=== PATIENT | female | born 1970 | race Caucasian/White ===

== ENCOUNTER 2020-07-31 20:10 | Emergency (ER) | payer MEDICAID, SELFPAY ==
[2020-07-31 20:18] VITALS: BP 119/79; PULSE 80; RESP 18; TEMP 36.2; O2SAT 100
--- NOTE | 2020-07-31 20:24 | ED.GENADULT ---
HPI - General Adult General Chief complaint: Extremity Injury, Upper <Luis A Hernandez PA-C - Last Filed: 08/08/20 21:35> Stated complaint: right arm pain, possible injury from tuesday <Luis A Hernandez PA-C - Last Filed: 08/08/20 21:35> Time Seen by Provider: 07/31/20 20:19 <Luis A Hernandez PA-C - Last Filed: 08/08/20 21:35> Related Data Allergies/adverse reactions: Allergies Allergy/AdvReac Type Severity Reaction Status Date / Time sulfisoxazole AdvReac Unknown Verified 07/31/20 20:22 [From Gantrisin] <Luis A Hernandez PA-C - Last Filed: 08/08/20 21:35> [facility] Past Medical History Medical History: Medical History (Updated 08/01/20 @ 00:00 by Raphael Agosto) Diabetes mellitus <Luis A Hernandez PA-C - Last Filed: 08/08/20 21:35> Social History Social History: Social History (Updated 07/31/20 @ 20:24 by Luis A Hernandez PA-C) Smoking status: Current every day smoker <Luis A Hernandez PA-C - Last Filed: 08/08/20 21:35> Exam Narrative: Exam Narrative: GENERAL: Well-appearing, well-nourished, and in no acute distress. HEAD: Normocephalic, atraumatic. EYES: PERRLA and EOMI. ENT: Nares clear, no rhinorrhea or epistaxis. Mucous membranes moist. Oropharynx without tonsillar hypertrophy exudate or other lesions. NECK: Supple. No adenopathy or masses. EXTREMITIES: Normal range of motion. No edema. Tenderness of the medial aspect of the right elbow at the condyle remainder of extremity nontender no deformities SKIN: Warm, dry, no rash. NEURO: No focal deficits. Alert and oriented x3. Neurovascularly intact. Capillary refill less than 3 seconds PSYCH: Normal mood and affect. <Luis A Hernandez PA-C - Last Filed: 08/08/20 21:35> Course Course Emergency Course: Patient in the room in no distress aware of case findings treatment plan and diagnosis agreeing to follow-up with provided specialty services <Luis A Hernandez PA-C - Last Filed: 09/11/20 21:35> Vital Signs Vital signs: Vital Signs Temperature 97.2 F L 07/31/20 20:18 Pulse Rate 80 07/31/20 20:18 Respiratory Rate 18 07/31/20 20:18 Blood Pressure 119/79 07/31/20 20:18 Pulse Oximetry 100 07/31/20 20:18 Temperature 97.2 F L 07/31/20 20:18 Pulse Rate 80 07/31/20 20:18 Respiratory Rate 18 07/31/20 20:18 Blood Pressure 119/79 07/31/20 20:18 Pulse Oximetry 100 07/31/20 20:18 <Luis A Hernandez PA-C - Last Filed: 08/08/20 21:35> Vital Signs Temperature 97.2 F L 07/31/20 20:18 Pulse Rate 80 07/31/20 20:18 Respiratory Rate 18 07/31/20 20:18 Blood Pressure 119/79 07/31/20 20:18 Pulse Oximetry 100 07/31/20 20:18 Temperature 97.2 F L 07/31/20 20:18 Pulse Rate 80 07/31/20 20:18 Respiratory Rate 18 07/31/20 20:18 Blood Pressure 119/79 07/31/20 20:18 Pulse Oximetry 100 07/31/20 20:18 <Keren Salomon MD - Last Filed: 08/15/20 18:59> Medical Decision Making MDM Narrative Medical decision making narrative: Patients injury or pain is consistent with musculoskeletal etiology. No signs of neurological or vascular compromise on exam. Compartments and tisues are soft without signs of compartment syndrome. Pain is felt appropriate for further evaluation on an outpatient basis. <Luis A Hernandez PA-C - Last Filed: 08/08/20 21:35> Vital Signs Vital Signs: Vital Signs Temperature 97.2 F L 07/31/20 20:18 Pulse Rate 80 07/31/20 20:18 Respiratory Rate 18 07/31/20 20:18 Blood Pressure 119/79 07/31/20 20:18 Pulse Oximetry 100 07/31/20 20:18 Temperature 97.2 F L 07/31/20 20:18 Pulse Rate 80 07/31/20 20:18 Respiratory Rate 18 07/31/20 20:18 Blood Pressure 119/79 07/31/20 20:18 Pulse Oximetry 100 07/31/20 20:18 <Luis A Hernandez PA-C - Last Filed: 08/08/20 21:35> Vital Signs Temperature 97.2 F L 07/31/20 20:18 Pulse Rate 80 07/31/20 20:18 Respiratory Rate 18 07/31
[2020-07-31] MEDS: IBUPROFEN 600 MG TABLET PO (20:28)
== END 2020-07-31 20:35 | disposition home or self-care (01) ==
PROVIDERS: Emergency Provider General Practice; PCP Internal Medicine
DX: M77.9 Enthesopathy, unspecified (principal); E11.9 Type 2 diabetes mellitus without complications; F17.200 Nicotine dependence, unspecified, uncomplicated
CPT/HCPCS: 99283; A9270

== ENCOUNTER 2021-03-26 00:16 | Inpatient (IN) | payer OTHER, SELFPAY ==
[2021-03-26] VITALS (25 sets, daily range): BP systolic 93–142; BP diastolic 52–76; PULSE 59–87; RESP 11–20; TEMP 35.8–36.7; O2SAT 93–100; BMI 25.4
--- NOTE | ~2021-03-26 | XR_ITS ---
EXAMINATION: XR chest 2V DATE: 03/26/2021 00:59 INDICATION: Midline chest pain. TECHNIQUE: Frontal and lateral views of the chest were obtained. COMPARISON: None. FINDINGS: The chest demonstrates clear lungs without pneumonia, pleural effusion, or pneumothorax. Th e heart size is normal. IMPRESSION: 1. No acute cardiopulmonary disease. Reviewed, dictated and finalized at location A.
--- NOTE | 2021-03-26 00:27 | ECG_ITS ---
Measurements Intervals [place] Rate: 69 P: 48 [place]: 184 QRS: 34 QRSD: 85 T: 29 QT: 353 QTc: 378 Interpretive Statements SINUS RHYTHM BASELINE ARTIFACT- I, II, III, AVR, AVF, V1, V3-V6 NORMAL ECG Electronically Signed On 03-26-2021 7:14:17 CDT by Scott Chambers D.O.
[2021-03-26 00:43] LABS: Basophils Percent Auto 0.3 % (0.2-1.2); Eosinophils Absolute Auto 0.2 K/mm3 (0-0.3); Eosinophils Percent Auto 1.6 % (0-4.4); Hematocrit 46.1 % (37.0-47.0); Hemoglobin 15.1 g/dL (12.0-15.0); Immature Granulocyte Absolute 0.03 K/mm3 (0.00-0.031); Immature Granulocyte Percent A 0.3 % (0-0.5); Lymphocytes Absolute Auto 3.58 K/mm3 (0.9-3.2); Lymphocytes Percent Auto 33.5 % (18.3-44.2); Mean Corpuscular HGB Conc 32.8 g/dl (32-36); Mean Corpuscular Hemoglobin 31.1 pg (26-34); Mean Corpuscular Volume 95.1 fl (80-100); Mean Platelet Volume 9.7 fl (7.4-10.4); Monocytes Absolute Auto 0.7 K/mm3 (0.1-0.6); Monocytes Percent Auto 6.8 % (2.6-8.5); Neutrophils Absolute Auto 6.1 K/mm3 (1.3-6.7); Neutrophils Percent Auto 57.5 % (45.5-73.1); Platelet Count Result 267 k/mm3 (150-375); Red Blood Count 4.85 M/mm3 (4.2-5.4); Red Cell Distribution Width 13.2 % (11.5-14.5); White Blood Count 10.7 K/mm3 (4.5-10.0)
[2021-03-26 00:50] LABS: Anion Gap 7 mmol/L (8-16); Blood Urea Nitrogen 15 mg/dL (7-17); Calcium 9.2 mg/dL (8.4-10.2); Carbon Dioxide 27 mmol/L (22-30); Chloride 104 mmol/L (98-107); Estimated CRCL calculation 87 ml/min; Estimated Glomerular Filt Rate > 60; Glucose 274 mg/dL (65-105); INR 0.9; Potassium 4.1 mmol/L (3.4-5.0); Prothrombin Time 12.2 Seconds (11.1-14.7); Sodium 138 mmol/L (137-145)
[2021-03-26 00:52] LABS: Partial Thromboplastin Time 26.3 SECONDS (22.3-36.8)
[2021-03-26] MEDS: ASPIRIN 81 MG CHEWABLE TABLET 324 MG PO (01:13)
--- NOTE | 2021-03-26 01:21 | ED.CHESTPAIN ---
HPI - Chest Pain General Chief Complaint: Chest Pain Stated Complaint: Chest pain Time Seen by Provider: 03/26/21 01:21 Source: patient Mode of arrival: ambulatory Limitations: no limitations History of Present Illness HPI narrative: Patient is a 50-year old female complaining of chest pain, midsternal, 7 out of 10, tightness, radiating to her left upper extremity that started prior to arrival. Patient denies any shortness of breath, abdominal pain, nausea, vomiting, diaphoresis, fever or chills. Related Data Allergies Allergy/AdvReac Type Severity Reaction Status Date / Time sulfisoxazole AdvReac Unknown Verified 03/26/21 00:17 [From Gantrisin] Review of Systems Review of Systems: All systems reviewed & are unremarkable except as noted in HPI and below Constitutional: Constitutional: Denies body ache(s), Denies chills, Denies excessive sweating, Denies fatigue, Denies fever(s), Denies headache(s), Denies lethargy, Denies malaise, Denies weakness and Denies weight loss Eyes: Eyes: Denies blurry vision, Denies change in vision and Denies loss of vision ENT: Denies dizziness, Denies ear discharge, Denies headache(s), Denies lip swelling, Denies epistaxis, Denies nasal congestion, Denies neck pain, Denies throat swelling and Denies tongue swelling Cardiovascular: Cardiovascular: Denies diaphoresis, Denies rapid heart rate, Denies edema, Denies irregular heart rhythm, Denies lightheadedness, Denies palpitations, Denies dyspnea and Denies dyspnea on exertion Respiratory: Respiratory: Denies chest congestion, Denies cough, Denies hemoptysis, Denies dyspnea and Denies dyspnea on exertion Gastrointestinal: Gastrointestinal: Denies abdominal pain, Denies melena, Denies hematochezia, Denies diarrhea, Denies nausea, Denies vomiting and Denies hematemesis Musculoskeletal: Musculoskeletal: Denies abnormal gait, Denies deformity, Denies joint swelling, Denies limited range of motion, Denies neck pain and Denies numbness Neurologic: Denies Abnormal speech present, Denies abnormal gait, Denies confusion, Denies dizziness, Denies headache(s), Denies focal weakness, Denies loss of vision, Denies numbness, Denies Other visual disturbances, Denies Sensory deficit (Neuro) and Denies weakness Psychiatric: Psychiatric: Denies confusion, Denies depression, Denies auditory hallucinations, Denies homicidal ideation and Denies suicidal ideation Endocrine: Endocrine: Denies cold intolerance, Denies excessive sweating, Denies fatigue, Denies heat intolerance and Denies palpitations Hematologic/Lymphatic: Hematologic/Lymphatic: Denies easy bleeding and Denies easy bruising Allergic/Immunologic: Allergic/Immunologic: Denies lip swelling, Denies throat swelling and Denies tongue swelling PMFSH Past Medical History Medical History (Updated 03/26/21 @ 02:31 by Anthony Rivas MD) Diabetes mellitus Social History Social History (Updated 07/31/20 @ 20:24 by Luis A Hernandez PA-C) Smoking status: Current every day smoker Comments Past medical history: Diabetes Family history: Positive for coronary artery disease Social history: Non-smoker no EtOH or drug use Exam Const: General: cooperative, healthy appearing, comfortable, no acute distress, well developed, alert and awake; No confusion Orientation/consciousness: oriented to person, oriented to place, oriented to time, patient oriented x3 and No confusion Limitations: no limitations HENMT: Head: normal to inspection, normocephalic and atraumatic Ears: hearing grossly normal bilaterally, TM normal on the right and TM normal on the left General nose exam: Normal external nose present, Normal nares present and No nasal discharge present Face and sinus: normal facial exam Mouth: Yes Normal oral and palatal mucosa present, Yes lip normal, Yes tongue normal and Yes oropharynx normal Throat: posterior oropharynx normal, tonsils normal and uvula midline Eyes: General: appearance normal, both eyes
--- NOTE | 2021-03-26 02:02 | PC.NURSE ---
RN in to administered enoxaparin. pt. refusing the shot. pt. also asking when she can go home. ERP notified and informed RN he will talk to the pt.
[2021-03-26] MEDS: ENOXAPARIN 80 MG/0.8 ML SYRINGE SUB-Q (02:09)
--- NOTE | 2021-03-26 03:16 | PC.NURSE ---
Pt ambulatory to restroom with steady even unassisted gait. c/o pain to upper medial chest. intermittantly appears asleep and/or talking on the phone. no s/s of distress, pain, respiratory difficulty. Pt requests dinner tray and beverage - pt educated that she is currently NPO per admission orders. will continue to monitor/
--- NOTE | 2021-03-26 04:05 | PC.NURSE ---
This patient, Juany Tripathi, was admitted to IMU Room 211-01. Patient/family oriented to hospital policies and general routines including ID bracelet, bed and alarms, visiting hours, pain management, procedures, bathroom and other care routines, personal items, smoking policy, room service/diet, and visiting hours. Information on how to activate the Rapid Response Team has been discussed. Patient/Family are encouraged to report perceived risks to care and to ask questions if they do not understand what they are told or what they should do.
[2021-03-26 04:26] LABS: Troponin I 0.072 ng/mL (0.000-0.034)
[2021-03-26] MEDS: LACTATED RINGERS 1,000 ML 125 ML IV CONT (05:48)
[2021-03-26 06:47] LABS: Troponin I 0.081 ng/mL (0.000-0.034)
--- NOTE | 2021-03-26 09:16 | ECHO_ITS ---
Patient Info Name: Juany Tripathi Age: 50 years : 1970 Gender: Female Ht: 65 in Wt: 153 lbs BSA: 1.80 m2 HR: 60 bpm BP: 104 / 57 mmHg Technical Quality: Good Exam Date: 03/26/2021 9:54 AM Exam Location: [facility] Patient Status: Inpatient Admit Date: 03/26/2021 Staff Ordering Physician: Jonathan Brunson MD (la/brenda) [employer] (Ex ): Noemí Feliciano RDCS Attending Provider: Luly Clark MD Exam Type: CA echo doppler color flow Study Info Indications R07.9 - Chest pain, unspecified Complete two-dimensional, color flow and Doppler transthoracic echocardiogram is performed. Summary 1. Complete two-dimensional, color flow and Doppler transthoracic echocardiogram is performed. 2. Left ventricular chamber dimension is normal. 3. Left ventricular systolic function is normal, estimated at 65-70%. 4. The aortic valve is trileaflet. 5. There is no aortic valve stenosis. 6. The mitral valve has normal leaflets. 7. There is trace mitral valve regurgitation. 8. There is trace tricuspid valve regurgitation. 9. No pulmonary hypertension, estimated pulmonary arterial systolic pressure is 29 mmHg. 10. There is no pericardial effusion. 11. Normal inferior vena cava with >50% collapse upon inspiration. Left Ventricle Left ventricular chamber dimension is normal. Left ventricular systolic function is normal, estimated at 65-70%. There is no increased left ventricular wall thickness. Left ventricular septal wall motion is normal. The left ventricular diastolic function is normal. Global longitudinal strain is normal at -19 %. Right Ventricle Right ventricular chamber dimension is normal. Right ventricular systolic function is normal. Left Atria Left atrial chamber dimension is normal. Right Atria Right atrial chamber dimension is normal. Aortic Valve The aortic valve is trileaflet. There is no aortic valve sclerosis. There is no aortic valve stenosis. There is no aortic valve regurgitation. Pulmonic Valve The pulmonic valve is normal. There is no pulmonic valve stenosis. There is no pulmonic regurgitation. Mitral Valve The mitral valve has normal leaflets. There is no mitral valve stenosis. There is trace mitral valve regurgitation. Tricuspid Valve The tricuspid valve leaflets are normal. There is no significant tricuspid valve stenosis. There is trace tricuspid valve regurgitation. No pulmonary hypertension, estimated pulmonary arterial systolic pressure is 29 mmHg. Pericardium/Pleural The pericardium appears normal. There is no pericardial effusion. Inferior Vena Cava Normal inferior vena cava with >50% collapse upon inspiration. Aorta The aortic root size at the sinus of Valsalva is normal. The prox ascending aorta size is normal. Left Ventricular Outflow Tract Name Value Normal LVOT 2D LVOT Diameter 2.0 cm LVOT Doppler LVOT Peak Gradient 3 mmHg LVOT Mean Gradient 2 mmHg LVOT VTI 19 cm LVOT VTI/AV VTI Ratio 1.0
--- NOTE | 2021-03-26 09:33 | PM.CNCAR ---
Assessment and Plan Assessment and plan (1) Non-ST elevation NV (NSTEMI): Code(s): I21.4 - Non-ST elevation (NSTEMI) myocardial infarction Status: Acute Assessment and Plan: 50 y/o with no prior cardiac history however risk factors of DM for >20 years and active tobacco abuse who presented with chest pain She ruled in with Troponin that is mildly elevated 0.08. EKG with ischemic changes in inferior leads. She is pain free currently. Received 1 dose of Lovenox around 3 am. Will follow troponin to peak. Check Lipid panel Check 2D echo Will plan C later today. Keep NPO Will start ASA 81 mg daily (received 325 mg last night). Will also start Crestor 10 mg daily. Will hold off starting second antiplatelet. Also no BB with no BP room Smoking cessation counseling (2) Diabetes: Code(s): E11.9 - Type 2 diabetes mellitus without complications Status: Acute Assessment and Plan: Management per primary team (3) Tobacco abuse: Code(s): Z72.0 - Tobacco use Status: Acute History of Present Illness History of Present Illness Consult date/time: 03/26/21 09:33 50 y/o with no known cardiac history however cardiovascular risk factors of DM for 20+ years and active tobacco abuse who presented with chest pain Pain started around midnight and woke her up from sleep, felt like heaviness as if someone sitting on her chest with squeezing in the left arm. Pain was 10/10 , associated with nausea but no dyspnea or diaphoresis. Her daughter brought her to ER. Her chest pain resolved while in ER. She received ASA. Her Trop was mildly elevated at 0.06---0.07--0.08 She feels better this morning with no recurrence of chest pain.She admits to being under a lot of stress. EKG shows normal sinus rhythm with T wave inversion in inferior leads Creatinine normal. Lipid panel was not checked. Father had heart disease in his late 60s, younger sister has stents and on HD Reason For Visit: NSTEMI Review of Systems Review of Systems: All systems reviewed & are unremarkable except as noted in HPI and below Constitutional: Constitutional: Denies fatigue and Denies headache(s) Eyes: Eyes: Denies blurry vision ENT: Reports Normal hearing present and Denies headache(s) Cardiovascular: Cardiovascular: Denies chest pain, Denies diaphoresis, Denies pedal edema, Denies leg edema, Denies lightheadedness, Denies palpitations and Denies dyspnea Respiratory: Respiratory: Denies cough and Denies dyspnea Gastrointestinal: Gastrointestinal: Denies abdominal pain Musculoskeletal: Musculoskeletal: Denies back pain Neurologic: Reports Normal hearing present and Denies headache(s) Psychiatric: Psychiatric: Denies anxiety Endocrine: Endocrine: Denies fatigue and Denies palpitations PMFSH Past Medical History Medical History (Updated 03/26/21 @ 09:41 by Jonathan Brunson MD) Diabetes mellitus Family History Family History (Updated 03/26/21 @ 04:44 by Shen Gonzales RN) Father Acute myocardial infarction Diabetes mellitus Mother Acute myocardial infarction Diabetes mellitus Sibling Diabetes mellitus Social History Social History (Updated 07/31/20 @ 20:24 by Luis A Hernandez PA-C) Smoking packs per day: 1 Smoking cigarettes per day: 20.0 Years smoked: 30 Smoking pack-years: 30.00 Smoking status: Current every day smoker Tobacco type: cigarettes Alcohol intake: current Drinks per week: 1 Spiritual care concerns: No Meds Home Medications and Allergies Home Medications Medication Instructions Recorded Confirmed Type bupropion HCl 150 mg PO DAILY 03/26/21 03/26/21 History calcium carbonate-vitamin D3 1 tablet PO DAILY 03/26/21 03/26/21 History empagliflozin [Jardiance] 10 mg PO DAILY 03/26/21 03/26/21 History estradiol-norethindrone acet 1 tablet PO DAILY 03/26/21 03/26/21 History fluoxetine 20 mg PO DAILY 03/26/21 03/26/21 History glimepiride 4 mg PO D
[2021-03-26 10:46] LABS: Cholesterol 171 mg/dL (0-200); HDL Direct 31 mg/dL; Triglycerides 127 mg/dL (<150)
[2021-03-26 10:57] LABS: LDL Cholesterol Direct 109 mg/dL
[2021-03-26 11:00] LABS: Troponin I 0.067 ng/mL (0.000-0.034)
[2021-03-26 11:16] LABS: Hemoglobin A1C 12.6 % (<5.7)
--- NOTE | 2021-03-26 13:02 | PM.IMHP ---
H&P: HPI History of Present Illness Date/Time: 03/26/21 13:02 Patient is a 50-year-old female with no significant past medical history cardiac disease other than diabetes however family history significant for coronary artery disease her father had AL at age 50 and her sister in her 20s, presented with complaint of chest pain upon arrival, patient states the pain woke her up from sleep and felt like somebody was sitting on her chest, emergency depart patient was evaluated her tropes are elevated 0.06, 0.072, 0.081 and 0.067, patient seen cardiology suspect non STEMI and has ordered cardiac echo and will take the patient for a catheterization later this afternoon, patient with uncontrolled diabetes with hemoglobin A1c of 12.6 will have perinatal educator evaluate the patient meanwhile will continue home regimen and further recommendation to follow Chief Complaint: Chest pain Review of Systems Review of Systems: All systems reviewed & are unremarkable except as noted in HPI and below PMFSH Past Medical History Medical History (Updated 03/26/21 @ 13:19 by Luly Clark MD) Diabetes mellitus Family History Family History (Updated 03/26/21 @ 04:44 by Shen Gonzales RN) Father Acute myocardial infarction Diabetes mellitus Mother Acute myocardial infarction Diabetes mellitus Sibling Diabetes mellitus Social History Social History (Updated 07/31/20 @ 20:24 by Luis A Hernandez PA-C) Smoking packs per day: 1 Smoking cigarettes per day: 20.0 Years smoked: 30 Smoking pack-years: 30.00 Smoking status: Current every day smoker Tobacco type: cigarettes Alcohol intake: current Drinks per week: 1 Spiritual care concerns: No Meds Home Medications and Allergies Home Medications Medication Instructions Recorded Confirmed Type bupropion HCl 150 mg PO DAILY 03/26/21 03/26/21 History calcium carbonate-vitamin D3 1 tablet PO DAILY 03/26/21 03/26/21 History empagliflozin [Jardiance] 10 mg PO DAILY 03/26/21 03/26/21 History estradiol-norethindrone acet 1 tablet PO DAILY 03/26/21 03/26/21 History fluoxetine 20 mg PO DAILY 03/26/21 03/26/21 History glimepiride 4 mg PO DAILY 03/26/21 03/26/21 History Allergies Allergy/AdvReac Type Severity Reaction Status Date / Time sulfisoxazole AdvReac Unknown Verified 03/26/21 00:17 [From Gantrisin] Vital Signs Vital Signs - 24 hr 03/26/21 00:22 03/26/21 00:30 03/26/21 01:58 Temperature 98.1 F Pulse Rate 70 74 Respiratory Rate 14 Blood Pressure 125/70 Pulse Oximetry 100 98 03/26/21 02:02 03/26/21 03:58 03/26/21 04:00 Temperature 97.2 F L Pulse Rate 70 65 65 Respiratory Rate 16 20 20 Blood Pressure 142/76 H 114/73 Pulse Oximetry 98 98 99 03/26/21 06:00 03/26/21 06:31 03/26/21 08:00 Temperature 97.9 F Pulse Rate 87 72 64 Respiratory Rate 18 Blood Pressure 104/57 L Pulse Oximetry 93 98 03/26/21 10:00 03/26/21 12:00 Temperature 97.3 F L Pulse Rate 65 63 Respiratory Rate 14 Blood Pressure 100/56 L Pulse Oximetry 100 Exam Narrative: Exam Narrative: Patient is comfortable, NAD HEENT: eyes are clear and none icteric LUNGS:CTA HEART: RR S1S2 ABD: BS+, Soft and nontender Lower extremities: no edema SKIN: nonjaundiced Neuro: grossly intact. H&P: Results Labs Labs: Short CBC 03/26/21 Range/Units 00:33 WBC 10.7 H (4.5-10.0) K/mm3 Hgb 15.1 H (12.0-15.0) g/dL Hct 46.1 (37.0-47.0) % Plt Count 267 (150-375) k/mm3 BMP 03/26/21 00:33 Sodium 138 Potassium 4.1 Chloride 104 Carbon Dioxide 27 BUN 15 Creatinine 0.70 Glucose 274 H Calcium 9.2 Cardiac Enzymes 03/26/21 03/26/21 03/26/21 Range/Units 00:33 03:40 06:05 Troponin I 0.060 H* 0.072 H* 0.081 H* (0.000-0.034) ng/mL 03/26/21 Range/Units 09:48 Troponin I 0.067 H* (0.000-0.034) ng/mL Assessment and Plan Assessment and plan (1) Non-ST elevation AL (NSTEMI): Code(s)
--- NOTE | 2021-03-26 14:04 | WPDMODSED ---
Moderate Sedation Note-Pt Data Patient Data Allergies Allergy/AdvReac Type Severity Reaction Status Date / Time sulfisoxazole AdvReac Unknown Verified 03/26/21 00:17 [From [facility]] Home Medications Medication Instructions Recorded Confirmed Type bupropion HCl 150 mg PO DAILY 03/26/21 03/26/21 History calcium carbonate-vitamin D3 1 tablet PO DAILY 03/26/21 03/26/21 History empagliflozin [Jardiance] 10 mg PO DAILY 03/26/21 03/26/21 History estradiol-norethindrone acet 1 tablet PO DAILY 03/26/21 03/26/21 History fluoxetine 20 mg PO DAILY 03/26/21 03/26/21 History glimepiride 4 mg PO DAILY 03/26/21 03/26/21 History Current Medications: Active Medications Aspirin (Aspirin 81 Mg Chewable Tablet) 81 mg PO DAILY@0800 ON LICENSE OF [facility] Bupropion HCl (Bupropion Hcl Sr (12hr) 150 Mg Tab) 150 mg PO DAILY ON LICENSE OF [facility] Calcium Carbonate (Calcium/Vitamin D 500 Mg Tablet) 500 mg PO DAILY ON LICENSE OF [facility] Dextrose (Dextrose 50% 25 Gm/50 Ml Syringe) 12.5 gm IV PUSH PRN PRN; Protocol PRN Reason: Hypoglycemia Fluoxetine HCl (Fluoxetine Hcl 20 Mg Capsule) 20 mg PO DAILY ON LICENSE OF [facility] Glimepiride (Glimepiride 2 Mg Tablet) 4 mg PO DAILY ON LICENSE OF [facility] Glucagon (Glucagon For Inj 1 Mg Vial) 1 mg IM PRN PRN; Protocol PRN Reason: Hypoglycemia Glucose (Glucose Oral Gel 15 Gm Of Glucse In 37.5 Gm Tube) 15 gm PO PRN PRN; Protocol PRN Reason: Hypoglycemia Lactated Ringer's (Lr - Lactated Ringers Iv) 1,000 mls @ 125 mls/hr IV CONT .Q8H ON LICENSE OF [facility] Last Admin: 03/26/21 05:48 Dose: 125 mls/hr Documented by: Dextrose (Dextrose 5% 1,000 Ml) 1,000 mls @ 100 mls/hr IVPB PRN PRN; Protocol PRN Reason: Hypoglycemia Insulin Aspart (Insulin Aspart (*Bkc) 100 Units/Ml) 2 - 5 units SUB-Q TIDWM KARLO; Protocol Insulin Aspart (Insulin Aspart (*Bkc) 100 Units/Ml) 2 - 5 units SUB-Q TIDWM KARLO; Protocol Non-Formulary Medication (Empagliflozin [Jardiance]) 10 mg PO DAILY ON LICENSE OF [facility] Stop: 04/26/21 09:01 Non-Formulary Medication (Estradiol-Norethindrone Acet) 1 tablet PO DAILY ON LICENSE OF [facility] Stop: 04/26/21 09:01 Rosuvastatin Calcium (Rosuvastatin 10 Mg Tablet) 10 mg PO QAM ON LICENSE OF [facility] Sedation/Anesthesia: No previous sedation/anesthesia problems (including family history). [facility] Past Medical History Medical History (Updated 03/26/21 @ 13:19 by Luly Clark MD) Diabetes mellitus Family History Family History (Updated 03/26/21 @ 04:44 by hSen Gonzales RN) Father Acute myocardial infarction Diabetes mellitus Mother Acute myocardial infarction Diabetes mellitus Sibling Diabetes mellitus Social History Social History (Updated 07/31/20 @ 20:24 by Luis A Hernandez PA-C) Smoking packs per day: 1 Smoking cigarettes per day: 20.0 Years smoked: 30 Smoking pack-years: 30.00 Smoking status: Current every day smoker Tobacco type: cigarettes Alcohol intake: current Drinks per week: 1 Spiritual care concerns: No Mod Sed Physical Exam Physical Exam Pre Procedural Exam: Normal: Appearance, Eyes, Ears, Nose, Neck, Throat, Airway, Lungs, Heart Size, Heart Rate, Heart Rhythm, Neuro Exam, Abdomen, Liver, Kidneys, Spleen, Breasts, Genitalia, Extremities and Skin Hours since solid foods: 8 Hours since liquid intake: 8 Internal Medicine - PN: Obj Da Vital Signs Vital Signs: Vital Signs - 24 hr 03/26/21 00:22 03/26/21 00:30 03/26/21 01:58 Temperature 36.7 C Pulse Rate 70 74 Respiratory Rate 14 Blood Pressure 125/70 Pulse Oximetry 100 98 03/26/21 02:02 03/26/21 03:58 03/26/21 04:00 Temperature 36.2 C L Pulse Rate 70 65 65 Respiratory Rate 16 20 20 Blood Pressure 142/76 H 114/73 Pulse Oximetry 98 98 99 03/26/21 06:00 03/26/21 06:31 03/26/21 08:00 Temperature 36.6 C Pulse Rate 87 72 64 Respiratory Rate 18 Blood Pressure 104/57 L Pulse Oximetry 93 98 03/26/21 10:00 03/26/21 12:00 Temperature 36.3 C L Pulse Rate 65 63 Respiratory Rate 14 Blood Pressure 100/56 L Pulse Oximetry 100 Intake/Output Intake/Output: Intake & Output 03/23/21 03/24/21
--- NOTE | 2021-03-26 14:45 | WPDCARDPROC ---
Cardiac Cath Procedure Note Date of procedure:: 03/26/21 Performing physician:: Jaspal Soler MD Procedure: 1. Left heart catheterization, selective coronary angiogram. 2. Left ventricular angiogram. 3. Conscious sedation. Production Associate: Dr. Jaspal Soler Complications: None. Sedation: Conscious sedation, local anesthesia, using 1 mg of Versed said, 25 mcg of fentanyl, and using 1% lidocaine for local anesthesia. History:50 years old lady with history of diabetes mellitus, history of hypertension came to hospital because of recurrent angina noted to have crescendo angina with EKG changes. Was brought to the laboratory director for elective cardiac catheterization for definitive diagnosis of coronary disease Technique: After informed consent was obtained from patient, was brought to the laboratory director, put in the laboratory director table, prepped and draped in usual sterile fashion. Five Dutch sheath was inserted into the right common femoral artery, through the sheath 5 Dutch JL4 catheter inserted, advanced to the left coronary artery, left coronary artery angiogram was obtained. The catheter was exchanged over guidewire into a 5 Dutch JR4 catheter, advanced to the right coronary artery, right coronary artery angiogram was obtained. The catheter then was exchanged over guidewire into this 5 Dutch pigtail catheter, advanced to left ventricle, left ventricular angiogram was obtained. The catheter then was pulled, the sheath was pulled applying manual pressure for arterial hemostasis. Patient tolerated the procedure no complication, taken from the laboratory director to his room in stable condition stable vital signs. Hemodynamics: aortic pressure 98/50 . LV pressure 99/04 with LVEDP of 17 mmHg Angiographic findings: Left main: Medium size artery mid left main 40% disease Lad medium size artery showed ostial LAD 90% disease followed by mid LAD 90% disease Left circumflex artery, medium showed 1st obtuse marginal totally occluded with reconstitution distally and with 2 small branches, 2nd obtuse marginal showed 90% proximal disease RCA: Dominant vessel, showed mid RCA significant irregularity with a 40-50% disease, , PDA with 75% disease, and PLV with 75% disease LV: Normal size left ventricle with normal left ventricular systolic function. Summary: three-vessel coronary disease with disease of the ostium of the LAD and circ as well as distal right, with normal left ventricular systolic function Recommendation: would benefit from coronary bypass surgery BETANCOURT to LAD saphenous venous graft to obtuse marginal 1 and 2 saphenous venous graft to diagonal saphenous venous graft to PLV and PDA
--- NOTE | 2021-03-26 15:17 | PM.TDS ---
Transfer Discharge Sum: Prov Provider Date of admission: 03/26/21 09:57 Primary care physician: Pieter Riggins, Admitting clinician: Luly Clark MD Consults: 03/26/21 02:28 Consult to Physician Routine Comment: Consulting Provider: Jonathan Brunson Reason for consultation: NSTEMI Has provider been notified: Yes DS: Admitting Diagnosis Admitting Diagnosis Admitting Diagnosis: Chest pain DS: Discharge Diagnosis Discharge Diagnosis (1) Non-ST elevation [place] (NSTEMI): Code(s): I21.4 - Non-ST elevation (NSTEMI) myocardial infarction Status: Acute Assessment and Plan: 03/26/21 13:02 Patient is a 50-year-old female with no significant past medical history cardiac disease other than diabetes however family history significant for coronary artery disease her father had festival at age 50 and her sister in her 20s, presented with complaint of chest pain upon arrival, patient states the pain woke her up from sleep and felt like somebody was sitting her chest emergency depart patient was evaluated her tropes are elevated 0.06, 0.072, 0.081 and 0.067, patient seen cardiology suspect non STEMI and has ordered cardiac echo and will take the patient for a catheterization later this afternoon, patient with uncontrolled diabetes with hemoglobin A1c of 12.6 will have agricultural extension educator evaluate the patient meanwhile will continue home regimen and further recommendation to follow (2) Diabetes: Code(s): E11.9 - Type 2 diabetes mellitus without complications Status: Acute Assessment and Plan: patient uncontrolled diabetes with hemoglobin A1c of 12.6 currently patient only taking glimpride 4 mg daily will continue, will consult agricultural extension educator further recommendation, will monitor with sliding scale. (3) Tobacco abuse: Code(s): Z72.0 - Tobacco use Status: Acute Assessment and Plan: Cardiology counseled the patient to stop smoking and will continue on current patient to quit smoking. (4) Depression: Code(s): F32.9 - Major depressive disorder, single episode, unspecified Status: Acute Assessment and Plan: Will continue home regimen and monitor Transfer Discharge Sum: Med Medications Active and Home Medications: Home Medications bupropion HCl 150 mg PO DAILY 03/26/21 [History Confirmed 03/26/21] calcium carbonate-vitamin D3 1 tablet PO DAILY 03/26/21 [History Confirmed 03/26/21] empagliflozin [Jardiance] 10 mg PO DAILY 03/26/21 [History Confirmed 03/26/21] estradiol-norethindrone acet 1 tablet PO DAILY 03/26/21 [History Confirmed 03/26/21] fluoxetine 20 mg PO DAILY 03/26/21 [History Confirmed 03/26/21] glimepiride 4 mg PO DAILY 03/26/21 [History Confirmed 03/26/21] Active Medications Aspirin (Aspirin 81 Mg Chewable Tablet) 81 mg PO DAILY@0800 KARLO Bupropion HCl (Bupropion Hcl Sr (12hr) 150 Mg Tab) 150 mg PO DAILY [facility] Calcium Carbonate (Calcium/Vitamin D 500 Mg Tablet) 500 mg PO DAILY [facility] Dextrose (Dextrose 50% 25 Gm/50 Ml Syringe) 12.5 gm IV PUSH PRN PRN; Protocol PRN Reason: Hypoglycemia Fluoxetine HCl (Fluoxetine Hcl 20 Mg Capsule) 20 mg PO DAILY KARLO Glimepiride (Glimepiride 2 Mg Tablet) 4 mg PO DAILY [facility] Glucagon (Glucagon For Inj 1 Mg Vial) 1 mg IM PRN PRN; Protocol PRN Reason: Hypoglycemia Glucose (Glucose Oral Gel 15 Gm Of Glucse In 37.5 Gm Tube) 15 gm PO PRN PRN; Protocol PRN Reason: Hypoglycemia Lactated Ringer's (Lr - Lactated Ringers Iv) 1,000 mls @ 125 mls/hr IV CONT .Q8H KARLO Last Admin: 03/26/21 05:48 Dose: 125 mls/hr Documented by: Dextrose (Dextrose 5% 1,000 Ml) 1,000 mls @ 100 mls/hr IVPB PRN PRN; Protocol PRN Reason: Hypoglycemia Sodium Chloride (Normal Saline Iv) 1,000 mls @ 125 mls/hr IV CONT .Q8H ONE Stop: 03/26/21 22:56 Insulin Aspart (Insulin Aspart (*Bkc) 100 Units/Ml) 2 - 5 units SUB-Q TIDWM KARLO; Protocol Insulin Aspart (Insulin Aspart (*Bkc) 100 Units/Ml) 2 - 5 units SUB-Q TIDWM KARLO; Protocol Non-Formular
--- NOTE | 2021-03-26 17:02 | SUR.PHASEII ---
Pt s/p left heart cath. Right femoral artery puncture site without signs of bleeding or hematoma. Tegaderm drsg intact. Pt instructed on post procedure instructions with stated understanding. Pt transferred to 211 - settled into hospital bed - remains on bedrest - comfortable with HOB flat. IVF infusing to right forearm IV.
[2021-03-26 18:03] LABS: Glucose Point of Care 91 (65-105)
[2021-03-26] MEDS: SODIUM CHLORIDE 0.9% IV 1,000 ML 125 ML IV CONT (18:07)
--- NOTE | 2021-03-26 20:50 | PC.NURSE ---
Pt left via ambulance for [facility] E. @ 2044. Report given to Millicent BAKER on dayshift with follow up call given when pt departed.
== END 2021-03-26 20:45 | disposition short-term general hospital (02) | DRG 190 ==
LOC: ANHED 02:31 → ANHIMU 02:46
PROVIDERS: Internal Medicine; Specialist; Admitting Provider Family Medicine; Emergency Provider Emergency Medicine; PCP Internal Medicine; Visit Provider Family Medicine
PROC: 4A023N7 Measurement of Cardiac Sampling and Pressure, Left Heart, Percutaneous Approach (ICD-10-PCS; CPT 93452; principal; 2021-03-26 13:30)
DX: I21.4 Non-ST elevation (NSTEMI) myocardial infarction (principal); I25.10 Atherosclerotic heart disease of native coronary artery without angina pectoris; E11.9 Type 2 diabetes mellitus without complications; F32.9 Major depressive disorder, single episode, unspecified; F17.210 Nicotine dependence, cigarettes, uncomplicated
CPT/HCPCS: 36415; 71046; 80048; 80061; 82948; 83036; 84484; 85025; 85610; 85730; 93005; 93306; 93458; 96360; 96361; 96372; 99291; A9270; C1887; C1894; G0378; G0379; J0461; J1644; J1650; J2250; J3010; J7030; J7120

== ENCOUNTER 2022-01-31 19:33 | Emergency (ER) | payer OTHER, SELFPAY ==
--- NOTE | ~2022-01-31 | CT_ITS ---
IMPRESSION: 1. Moderately distended gallbladder. No definite gallstones. If there is concer n for cholecystitis, correlation with ultrasound recommended. 2: Peripherally enhancing low density uterine mass measuring 1.9 cm possibly i nvolving the endometrium. Recommend correlation with ultrasound. 3: Nondependent gas within the bladder lumen with mild bladder wall thickening and subtle perivesical fatty infiltration, suspicious for cystitis. EXAMINATION: CT abdomen pelvis w con DATE: 01/31/2022 20:56 INDICATION: Lower abdominal pain for 2 weeks TECHNIQUE: Computed tomography (CT) of the abdomen and pelvis was performed with 100 cc Omnipaque 350 intravenous contrast. The dose-length product was 433.98 mGy-cm. Automated exposure control and iter ative reconstruction technique were employed. COMPARISON: No prior studies for comparison. FINDINGS: Lung bases are normal. Heart size normal. No significant pleural or pericardial effusion. N o significant vascular abnormality. There is focal fatty infiltration of the liver near the falciform ligament. Gallbladder is distended. The spleen, pancreas, adrenal glands and kidneys are unremarkabl e. No lymphadenopathy. Nonobstructive bowel gas pattern. Normal appendix. No abnormal pelvic masses o r fluid collections. No free air or free fluid. There is a peripherally enhancing low-density 1.9 cm mass in the uterus, possibly involving the endometrium. There is gas within the bladder lumen with mi ld bladder wall thickening and subtle perivesical fatty infiltration, suspicious for cystitis. IMPRESSION: 1. Moderately distended gallbladder. No definite gallstones. If there is concern for cholecystitis, c orrelation with ultrasound recommended. 2: Peripherally enhancing low density uterine mass measuring 1.9 cm possibly involving the endometri um. Recommend correlation with ultrasound. 3: Nondependent gas within the bladder lumen with mild bladder wall thickening and subtle perivesical fatty infiltration, suspicious for cystitis. Reviewed, dictated and finalized at location A. BAND OPERATOR
[2022-01-31 19:35] VITALS: BP 109/81; PULSE 99; RESP 18; TEMP 36.6; O2SAT 97
--- NOTE | 2022-01-31 19:48 | ED.ABDPAIN ---
HPI - Abdominal Pain General Chief Complaint: Abdominal Pain Stated Complaint: right sided abd pain Time Seen by Provider: 01/31/22 19:41 Source: patient Mode of arrival: ambulatory Limitations: no limitations History of Present Illness HPI narrative: Patient is a 51-year-old female complaining of lower abdominal pain, 10 out of 10, dull, nonradiating accompanied by nausea started 1 week ago. Patient states that she was seen at another hospital 4 days ago and was diagnosed with acute appendicitis but signed out AMA. Patient denies any chest pain, shortness of breath, vomiting, diarrhea, urinary symptoms, fever or chills. Related Data Home Medications Medication Instructions Recorded Confirmed bupropion HCl 150 mg PO DAILY 03/26/21 03/26/21 calcium carbonate-vitamin D3 1 tablet PO DAILY 03/26/21 03/26/21 empagliflozin [Jardiance] 10 mg PO DAILY 03/26/21 03/26/21 estradiol-norethindrone acet 1 tablet PO DAILY 03/26/21 03/26/21 fluoxetine 20 mg PO DAILY 03/26/21 03/26/21 glimepiride 4 mg PO DAILY 03/26/21 03/26/21 Allergies Allergy/AdvReac Type Severity Reaction Status Date / Time metformin Allergy Hives Verified 01/31/22 19:46 sulfisoxazole AdvReac Unknown Verified 01/31/22 19:46 [From Gloria] Review of Systems Review of Systems: All systems reviewed & are unremarkable except as noted in HPI and below Constitutional: Constitutional: Denies body ache(s), Denies chills, Denies excessive sweating, Denies fatigue, Denies fever(s), Denies headache(s), Denies lethargy, Denies malaise, Denies weakness and Denies weight loss Eyes: Eyes: Denies blurry vision, Denies change in vision and Denies loss of vision ENT: Denies dizziness, Denies ear discharge, Denies headache(s), Denies lip swelling, Denies epistaxis, Denies nasal congestion, Denies neck pain, Denies throat swelling and Denies tongue swelling Cardiovascular: Cardiovascular: Denies chest pain, Denies chest pain at rest, Denies chest pain with activity, Denies diaphoresis, Denies rapid heart rate, Denies edema, Denies irregular heart rhythm, Denies lightheadedness, Denies palpitations, Denies dyspnea and Denies dyspnea on exertion Respiratory: Respiratory: Denies chest congestion, Denies cough, Denies hemoptysis, Denies dyspnea and Denies dyspnea on exertion Gastrointestinal: Gastrointestinal: Denies melena, Denies hematochezia, Denies diarrhea, Denies vomiting and Denies hematemesis Musculoskeletal: Musculoskeletal: Denies abnormal gait, Denies deformity, Denies joint swelling, Denies limited range of motion, Denies neck pain and Denies numbness Neurologic: Denies Abnormal speech present, Denies abnormal gait, Denies confusion, Denies dizziness, Denies headache(s), Denies focal weakness, Denies loss of vision, Denies numbness, Denies Other visual disturbances, Denies Sensory deficit (Neuro) and Denies weakness Psychiatric: Psychiatric: Denies confusion, Denies depression, Denies auditory hallucinations, Denies homicidal ideation and Denies suicidal ideation Endocrine: Endocrine: Denies cold intolerance, Denies excessive sweating, Denies fatigue, Denies heat intolerance and Denies palpitations Hematologic/Lymphatic: Hematologic/Lymphatic: Denies easy bleeding and Denies easy bruising Allergic/Immunologic: Allergic/Immunologic: Denies lip swelling, Denies throat swelling and Denies tongue swelling PMF Past Medical History Medical History Diabetes mellitus Family History Family History Father Acute myocardial infarction Diabetes mellitus Mother Acute myocardial infarction Diabetes mellitus Sibling Diabetes mellitus Social History Social History Smoking packs per day: 1 Smoking cigarettes per day: 20.0 Years smoked: 30 Smoking pack-years: 30.00 Smoking status: Current every day smo
[2022-01-31 20:06] LABS: Basophils Absolute Auto 0.1 K/mm3 (0.0-0.1); Basophils Percent Auto 0.7 % (0.2-1.2); Eosinophils Absolute Auto 0.2 K/mm3 (0-0.3); Eosinophils Percent Auto 1.8 % (0-4.4); Hematocrit 49.2 % (37.0-47.0); Immature Granulocyte Absolute 0.02 K/mm3 (0.00-0.031); Immature Granulocyte Percent A 0.2 % (0-0.5); Lymphocytes Absolute Auto 3.41 K/mm3 (0.9-3.2); Lymphocytes Percent Auto 36.1 % (18.3-44.2); Mean Corpuscular HGB Conc 32.5 g/dl (32-36); Mean Corpuscular Hemoglobin 30.9 pg (26-34); Mean Platelet Volume 10.1 fl (7.4-10.4); Monocytes Absolute Auto 0.7 K/mm3 (0.1-0.6); Neutrophils Absolute Auto 5.1 K/mm3 (1.3-6.7); Neutrophils Percent Auto 54.2 % (45.5-73.1); Platelet Count Result 323 k/mm3 (150-375); Red Blood Count 5.18 M/mm3 (4.2-5.4); Red Cell Distribution Width 12.9 % (11.5-14.5); White Blood Count 9.4 K/mm3 (4.5-10.0)
[2022-01-31] MEDS: SODIUM CHLORIDE 0.9% IV 1,000 ML 999 ML IV CONT (20:08)
[2022-01-31] MEDS: MORPHINE SULFATE (*CRX) 2 MG/ML INJ IV PUSH (20:09)
[2022-01-31] MEDS: PROMETHAZINE HCL 25 MG/ML AMPUL 12.5 MG IV PUSH (20:10)
[2022-01-31 20:19] LABS: Alanine Aminotransferase 20 U/L (4-35); Albumin Level 4.5 g/dL (3.5-5.1); Alkaline Phosphatase 110 U/L (38-126); Anion Gap 9 mmol/L (8-16); Aspartate Amino Transferase 26 U/L (14-36); Bilirubin,Total 0.4 mg/dL (0.2-1.3); Blood Urea Nitrogen 13 mg/dL (7-17); Calcium 9.5 mg/dL (8.4-10.2); Carbon Dioxide 27 mmol/L (22-30); Chloride 102 mmol/L (98-107); Estimated CRCL calculation 95 ml/min; Estimated Glomerular Filt Rate > 60; Glucose 317 mg/dL (65-110); Lactic Acid Reflex 1.2 mmol/L (0.7-2.1); Lipase 533 U/L (23-300); Sodium 138 mmol/L (137-145)
[2022-01-31 20:21] LABS: INR 0.9; Prothrombin Time 12.2 Seconds (11.1-14.7)
[2022-01-31 20:22] LABS: Partial Thromboplastin Time 27.4 SECONDS (22.3-36.8)
[2022-01-31 20:22] LABS: Add Urine Microscopic? YES; Appearance Urine Clear (Clear); Bilirubin Urine Negative (Negative); Blood Urine Negative (Negative); Color Urine Yellow (Yellow); Glucose Urine UA 3+ mg/dL (Negative); Ketones Urine 1+ mg/dL (Negative); Leukocyte Esterase Ur Negative LEU/UL (Negative); Mucus Urine Rare /lpf; Nitrate Urine Negative (Negative); Protein Urine Negative (Negative); RBC Urine 0-2 /hpf (0-2); Squamous Epithelial Cell Urine Occasional /hpf (Few); Urobilinogen Urine Negative mg/dL (<2.0); WBC Urine 0-3 /hpf
[2022-01-31 20:24] LABS: Specific Grav Ur 1.037 (1.001-1.035)
[2022-01-31 21:14] VITALS: BP 118/73; PULSE 76; RESP 18; O2SAT 97
[2022-01-31] MEDS: KETOROLAC 30 MG/ML VIAL (*BKC) IV PUSH (21:26)
[2022-01-31 21:30] VITALS: BP 105/54; PULSE 75; RESP 16; TEMP 36.6; O2SAT 98
== END 2022-01-31 21:36 | disposition home or self-care (01) ==
PROVIDERS: Emergency Provider Emergency Medicine; PCP Internal Medicine
DX: N30.00 Acute cystitis without hematuria (principal); E11.9 Type 2 diabetes mellitus without complications; E78.5 Hyperlipidemia, unspecified; I10 Essential (primary) hypertension; I25.10 Atherosclerotic heart disease of native coronary artery without angina pectoris; Z95.1 Presence of aortocoronary bypass graft; F17.210 Nicotine dependence, cigarettes, uncomplicated; Z79.84 Long term (current) use of oral hypoglycemic drugs; N85.9 Noninflammatory disorder of uterus, unspecified
CPT/HCPCS: 36415; 74177; 80053; 81001; 83605; 83690; 85025; 85610; 85730; 96361; 96374; 96375; 99284; J1885; J2270; J2550; J7030; Q9967